=== PATIENT | male | born 1995 | race Hispanic/Latino ===

== ENCOUNTER 2018-10-29 13:28 | Emergency (ER) ==
[~2018-10-29] VITALS: Ht 188 cm; Wt 108.9 kg
== END 2018-10-29 13:50 | disposition home or self-care (01) ==
LOC: ER 13:28
DX: S80.11XA Contusion of right lower leg, initial encounter (principal); W22.09XA Striking against other stationary object, initial encounter; Y99.0 Civilian activity done for income or pay
CPT/HCPCS: 99282